=== PATIENT | female | born 1945 | race African-American/Black ===

== ENCOUNTER 2024-01-21 18:34 | Emergency (ER) | payer OTHER ==
[~2024-01-21] VITALS: Ht 167.6 cm; Wt 68.8 kg
[2024-01-21 20:19] VITALS: TEMP 98.4
[2024-01-21] MEDS ORDERED: CYCL-1 PO (22:12)
[2024-01-21] MEDS ORDERED: LIDO700A32 TOP (22:12)
[2024-01-21] MEDS ORDERED: PRED20TA PO (22:12)
[2024-01-21] MEDS: cyclobenzaprine 10mg tablet PO ONE (22:34)
[2024-01-21] MEDS: dexamethasone sod phosphate 10mg/ml inj IM STA (22:37)
[2024-01-21] MEDS: ketorolac trometh inj. 60 MG/2 ML VIAL IM ONE (22:41)
[2024-01-21] MEDS: LIDOcaine 5% patch TP STA (22:56)
[2024-01-21 23:06] VITALS: BP 149/78; PULSE 90; RESP 16; O2SAT 95
== END 2024-01-21 23:05 | disposition home or self-care (01) ==
LOC: ER 18:35
DX: S29.012A Strain of muscle and tendon of back wall of thorax, initial encounter (principal); I10 Essential (primary) hypertension; R30.0 Dysuria; R31.9 Hematuria, unspecified; X58.XXXA Exposure to other specified factors, initial encounter; Y93.89 Activity, other specified; Y92.89 Other specified places as the place of occurrence of the external cause; Y99.8 Other external cause status
CPT/HCPCS: 72074; 72100; 96372; 99284; J1100; J1885

== ENCOUNTER 2025-05-14 09:39 | Outpatient (CLI) | payer OTHER ==
[2025-05-12 09:36] LABS: ALBUMIN 3.9 G/DL (3.4-5.0); ANION GAP 9 (8-16); BLOOD UREA NITROGEN 19 MG/DL (7-18); BUN/CREATININE RATIO 15.8 (10.0-20.0); CALCIUM 11.1 MG/DL (8.5-10.1); CHLORIDE 97 MMOL/L (99-107); GLUCOSE 111 MG/DL (70-104); POTASSIUM 4.3 MMOL/L (3.5-5.1); SODIUM 132 MMOL/L (135-145); eGFR 53 ML/MIN
[~2025-05-14 09:39] MED LIST: CYCL-1 PO; LIDO-52 TOP; iohexol 350 MG/ML 50ML vial IV ONE; iohexol 350MG/ML 100ml bottle IV ONE
--- NOTE | 2025-05-15 15:33 | RADIOLOGY REPORT ---
CTA ABDOMINAL AORTA WITH BILATERAL LOWER EXTREMITY RUNOFF WITH CONTRAST INDICATION: PERIPHERAL VASCULAR DISEASE COMPARISON: None TECHNIQUE: Axial CT images of the abdomen and bilateral lower extremities are obtained at 1 mm collimation in the early arterial phase after intravenous contrast administration. Coronal maximum intensity projection (MIP) images are provided. 3-D images of the abdominal aorta and bilateral lower extremity arteries were constructed on an independent workstation. Radiation optimization: All CT scans at this facility use at least one of these dose optimization techniques: Automated exposure control mA and/or kV adjustment per patient size (includes targeted exams where dose is matched to clinical indication) or iterative reconstruction. CONTRAST: 150 mL OMNIPAQUE 350 RADIATION DOSE: CTDI: 20 mGy DLP: 1257 mGy-cm FINDINGS: AORTA:There is no abdominal aortic aneurysm or dissection. There is moderate soft and calcified plaque in the abdominal aorta. The celiac, SMA, CANDELARIO, and renal arteries are patent. There is approximately 50% focal narrowing of the SMA at the origin with calcified plaque. The right renal artery is approximately 75% narrowed at the origin. There is no significant narrowing of the left renal artery. There is 1 right renal artery. There is 1 left renal artery. RIGHT LOWER EXTREMITY RUN-OFF: Common iliac: Patent without hemodynamically significant stenosis. External iliac: Patent without hemodynamically significant stenosis. Internal iliac: Patent without hemodynamically significant stenosis. GOLD BEATER: Patent without hemodynamically significant stenosis. SFA: Patent without hemodynamically significant stenosis. Scattered areas of focal narrowing less than 50%. Profunda Femoris: Patent without hemodynamically significant stenosis. Popliteal: There is approximately 50% focal narrowing in the upper popliteal artery. There is focal 60% narrowing in the popliteal artery just above the joint line. The popliteal artery occludes shortly before the trifurcation. No aneurysm or abnormal medial deviation is noted. Anterior Tibial: Occluded Tibioperoneal Trunk: Occluded Peroneal: Occluded Posterior Tibial: Occluded at the origin. Reconstituted shortly after the occlusion by a profunda collateral. Dorsalis Pedis: Patent without hemodynamically significant stenosis. The common and lateral plantar arteries are patent. LEFT LOWER EXTREMITY RUN-OFF: Common iliac: Patent without hemodynamically significant stenosis. External iliac: Patent without hemodynamically significant stenosis. Internal iliac: Patent without hemodynamically significant stenosis. GOLD BEATER: Patent without hemodynamically significant stenosis. SFA: There is approximately 50% focal narrowing near the origin. There is approximately 80% focal narrowing in the mid thigh. Profunda Femoris: Patent without hemodynamically significant stenosis. Popliteal: There are tandem 60-70% stenoses in the upper portion of the popliteal artery. Severe streak artifact from the left knee prosthesis degrades evaluation of much of the length of the artery. Anterior Tibial: Occluded at the origin Tibioperoneal Trunk: Critically narrowed throughout its length. Peroneal: Occluded shortly after the origin. Reconstitution of the distal segment by collaterals. Posterior Tibial: Occluded near the origin without significant reconstitution. Dorsalis Pedis: Patent and supplied by the peroneal artery. The common and lateral plantar arteries are not opacified and can not be evaluated. ADDITIONAL FINDINGS: There is patchy scattered airspace disease at the visualized base of the right lower lobe concerning for pneumonia. There is bronchial wall thickening. There is no pleural effusion. There is no pericardial effusion. The spleen is not enlarged. The liver is normal in size and contour. There is a approximately 3 mm calcified granuloma at the right liver dome. Respiratory motion artifact degrades evaluation of the upper abdomen. The gallbladder is surgically absent. The pancreas is grossly unremarkable. The adrenal glands are normal. The kidneys enhance symmetrically. No solid renal mass is identified. There is no hydronephrosis of either kidney. No pathologic lymphadenopathy is identified in the abdomen or pelvis by size criteria. No free fluid is identified in the abdomen or pelvis. There is no pathologic distention of the large or small bowel. There is extensive sigmoid diverticulosis without evidence of diverticulitis. The colonic stool burden is overall small. The appendix is normal. Incidental note is made of bony bridging of the right 2nd and 3rd metatarsals near the base. There are left knee and left hip prostheses. No acute osseous abnormality is identified. There is degenerative change throughout the visualized spine. IMPRESSION: Atherosclerotic disease, worst below the distal thigh in both lower extremities. 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 All 3 calf arteries are occluded near the origin. The right foot is supplied predominantly by the posterior tibial artery supplied by a profunda collateral. There are 50% and 80% focal stenoses in the left SFA as described above. There are tandem 60-70% stenoses in the popliteal artery. All 3 calf arteries are occluded. The left foot is supplied predominantly by the peroneal artery which is reconstituted by a collateral. Patchy airspace disease at the visualized right lower lobe base which is concerning for pneumonia. Extensive sigmoid diverticulosis without evidence of diverticulitis. RA GROSSMAN
== END 2025-05-14 23:59 | disposition home or self-care (01) ==
LOC: RAD 09:39
PROVIDERS: ATTEND Surgery
DX: Z01.818 Encounter for other preprocedural examination (principal); I70.293 Other atherosclerosis of native arteries of extremities, bilateral legs; K57.30 Diverticulosis of large intestine without perforation or abscess without bleeding
CPT/HCPCS: 36415; 75635; 80048; Q9967